=== PATIENT | female | born 1985 | race American Indian/Alaskan Native ===

== ENCOUNTER 2018-07-21 05:47 | Day surgery (SDC) | payer OTHER ==
[~2018-07-21 05:47] MED LIST: LACTATED RINGERS 1,000 ML IV SCH
[2018-07-21] MEDS ORDERED: VERSED IV NR (06:00)
[2018-07-21] MEDS ORDERED: NEURONTIN PO NR (06:00)
[2018-07-21] MEDS ORDERED: ZEMURON IV ONE (07:00)
[2018-07-21] MEDS ORDERED: DECADRON ONE (07:00)
[2018-07-21] MEDS ORDERED: DIPRIVAN 10 MG/ML IV ONE (07:00)
[2018-07-21] MEDS ORDERED: XYLOCAINE MPF 2% ONE (07:00)
[2018-07-21] MEDS ORDERED: SUBLIMAZE ONE (07:00)
[2018-07-21] MEDS ORDERED: TORADOL ONE (07:00)
[2018-07-21] MEDS ORDERED: VERSED ONE (07:46)
--- NOTE | 2018-07-21 07:47 | Short Stay Summary ---
Short Stay Documentation Date of service: 07/21/18 Narrative H&P: Pt is a 32yo BF LMP 03/21/18 due to Depoprovera presents for permanent sterilization - History Principal diagnosis: Desires permanent sterilization H&P: obtained from office Past Medical History: No medical history Past Surgical History: No surgical history Social history: no significant social history, single - Allergies and Medications Current Medications: Allergies No Known Allergies Allergy (Unverified 07/16/18 08:47) Home Medications Medication Instructions Recorded Confirmed Last Taken Type No Known Home Medications [No 07/16/18 07/16/18 Unknown History Reported Home Medications] Active Medications Celecoxib (Celebrex) 200 mg PO PREOP NR Stop: 07/21/18 23:59 Gabapentin (Neurontin) 300 mg PO PREOP NR Stop: 07/21/18 23:59 Lactated Ringer's (Lactated Ringers) 1,000 mls @ 100 mls/hr IV DIRECT ELAN Midazolam HCl (Versed) 2 mg IV PREOP NR Stop: 07/21/18 23:59 - Physical exam General appearance: no acute distress Integumentary: no rash HEENT: Atraumatic Lungs: Clear to auscultation Breasts: deferred Heart: Regular rate Gastrointestinal: normal Female Genitourinary: deferred Rectal Exam: deferred Extremities: no ischemia Neurological: Normal gait, Normal speech - Brief post op/procedure progress note Date of procedure: 07/21/18 Pre-op diagnosis: Desires permanent sterilization Post-op diagnosis: same Procedure: Laparoscopic bilateral tubal ligation Anesthesia: GETA Findings: Normal uterus with normal tubes and ovaries bilaterally Surgeon: ELANA TORRES Estimated blood loss: minimal Pathology: none Condition: stable - Hospital course Hospital course: Unremarkable. - Disposition Condition at discharge: Good Disposition: DC-01 TO HOME OR SELFCARE - Discharge Diagnoses (1) Encounter for sterilization Status: Resolved Short Stay Discharge Plan Activity: no restrictions Diet: regular Wound: open to air, keep clean and dry Follow up with: PRIMARY CAREMD [Primary Care Provider] - 7 Days ELANA TORRES MD [Staff Physician] - 7 Days Prescriptions: HYDROcodone/APAP 5-325 [[place] 5/325] 1 each PO Q6HR PRN #20 tablet PRN Reason: Pain
[2018-07-21] MEDS ORDERED: MARCAINE 0.5% INFILTRATI ONE ×2 (07:59→08:46)
[2018-07-21] MEDS ORDERED: ANCEF/STERILE WATER 2 GM/20 ML 2 GM/20 ML SYRINGE IV NR (08:00)
[2018-07-21] MEDS ORDERED: ANCEF ONE (08:43)
[2018-07-21] MEDS ORDERED: NACL 0.9% IR ONE (08:47)
[2018-07-21] MEDS ORDERED: BLOXIVERZ ONE (08:50)
[2018-07-21] MEDS ORDERED: ROBINUL ONE (08:51)
--- NOTE | 2018-07-21 09:05 | Operative Report ---
Operative Report Operative Report: PREOPERATIVE DIAGNOSIS: Desires permanent sterilization POSTOPERATIVE DIAGNOSIS: Same OPERATIVE PROCEDURE: Laparoscopic bilateral tubal ligation. SURGEON: Tee Dawn MD ANESTHESIA: Gen. endotracheal intubation ANESTHESIOLOGIST: Dr. Holland ESTIMATED BLOOD LOSS: Minimal less than 10 mL FINDINGS: Normal uterus. Normal tubes and ovaries bilaterally. COMPLICATIONS: None COUNTS: Correct x3. PROCEDURE: After the patient was correctly identified and after general anesthesia was administered, the patient was prepped and draped in usual sterile fashion and placed in dorsal lithotomy position. First, the bladder was emptied using a straight catheter. Next, a speculum was placed in the vaginal vault and the anterior lip of the cervix was grasped using a single-tooth tenaculum. The uterine manipulator was then placed and the tenaculum and speculum were removed. Attention was then turned to the abdomen where first a periumbilical incision was made using a skin knife, and the Optiview trocar was inserted under direct visualization. After an adequate amount of abdominal insufflation, v isualization of the pelvic organs found the uterus to be normal, and the tubes and ovaries to be normal bilaterally. Next, the left fallopian tube was grasped using the Kleppingers, and after identifying the fimbriated end of the left tube, this tube was cauterized in 3 continuous [address] along the proximal portion of the left tube. The same procedure was performed on the right fallopian tube after first identifying the fimbriated end of the right tube. This tube was also cauterized in 3 continuous places along the proximal portion of the right tube. At this point, the procedure was then considered complete. All instruments were removed from the abdomen. The abdomen was deflated and the periumbilical incision was closed using 0 Vicryl suture in a [id number] configuration on the fascia, followed by 4-0 Monocryl suture in sub-cuticular fashion on the skin. The incision was also infiltrated using 0.5% Marcaine solution. The uterine manipulator was removed. The patient tolerated the procedure well and was transferred to recovery room stable condition.
--- NOTE | 2018-07-21 09:06 | Anesthesia Consultation ---
Anesthesia Consult and Med Hx - Airway Anesthetic Teeth Evaluation: Good ROM Head & Neck: Adequate Mental/Hyoid Distance: Adequate Mallampati Class: Class I - Pulmonary Exam CTA: Yes - Cardiac Exam Cardiac Exam: RRR - Pre-Operative Health Status ASA Pre-Surgery Classification: ASA1 Proposed Anesthetic Plan: General (mildly overweight , otherwise no other medical issues) - Central Nervous System Hx Psychiatric Problems: No - Other Systems Hx Alcohol Use: Yes (Occas) Hx Cancer: No
--- NOTE | 2018-07-21 09:06 | Anesthesia Day of Surgery ---
Anesthesia Day of Surgery - Day of Surgery Patient Examined: Yes Patient H&P Reviewed: Yes Patient is NPO: Yes
[2018-07-21] MEDS ORDERED: NORCO 5/325 PO PRN (09:21)
[2018-07-21 09:57] VITALS: BP 133/77
[2018-07-21] MEDS ORDERED: ZOFRAN IV PRN (10:05)
[2018-07-21] MEDS ORDERED: DILAUDID IV PRN (10:05)
== END 2018-07-21 10:35 | disposition home or self-care (01) ==
LOC: OR 05:47
PROVIDERS: ATTEND Obstetrics & Gynecology
DX: Z30.2 Encounter for sterilization (principal); Z79.899 Other long term (current) drug therapy; Z72.89 Other problems related to lifestyle; Z98.890 Other specified postprocedural states
CPT/HCPCS: 58670; 81025; 82803; J0690; J1100; J1885; J2250; J2704; J2710; J3010; J7120